=== PATIENT | male | born 1985 | race Caucasian/White ===

== ENCOUNTER 2019-08-30 12:51 | Emergency (ER) | payer OTHER ==
[~2019-08-30] VITALS: Ht 175.3 cm; Wt 82.1 kg
[2019-08-30 13:13] VITALS: BP 129/93; Ht 175.3 cm; Wt 82.1 kg
== END 2019-08-30 14:37 | disposition home or self-care (01) ==
LOC: ED 12:51
DX: S61.215A Laceration without foreign body of left ring finger without damage to nail, initial encounter (principal); W31.9XXA Contact with unspecified machinery, initial encounter; Y93.9 Activity, unspecified; Y92.89 Other specified places as the place of occurrence of the external cause; Y99.8 Other external cause status
CPT/HCPCS: 90715; J2001; Q0092